=== PATIENT | male | born 1980 | race Caucasian/White ===

== ENCOUNTER 2016-12-18 23:35 | Emergency (ER) | payer OTHER ==
[~2016-12-18] VITALS: Ht 170.2 cm; Wt 81.0 kg
[2016-12-19 03:00] VITALS: BP 144/87
[2016-12-19] MEDS ORDERED: AMOXICILLIN 500 MG CAPSULE PO ONE (03:00)
[2016-12-19] MEDS ORDERED: KETOROLAC 60MG/2ML VIAL IM ONE (03:00)
== END 2016-12-19 03:55 | disposition home or self-care (01) ==
LOC: ER 12-19 00:10
DX: K08.89 Other specified disorders of teeth and supporting structures (principal); F12.10 Cannabis abuse, uncomplicated; Z98.890 Other specified postprocedural states
CPT/HCPCS: 96372; 99283; J1885